=== PATIENT | female | born 2000 | race Two or more races ===

== ENCOUNTER → 2019-04-03 | Outpatient (CLI) | payer OTHER | END | disposition home or self-care (01) | LOC: PRENATAL 11:00 | DX: O35.3XX1 Maternal care for (suspected) damage to fetus from viral disease in mother, fetus 1 (principal); Z36.89 Encounter for other specified antenatal screening; O98.912 Unspecified maternal infectious and parasitic disease complicating pregnancy, second trimester; O99.212 Obesity complicating pregnancy, second trimester; Z3A.21 21 weeks gestation of pregnancy ==

== ENCOUNTER → 2019-06-05 | Outpatient (CLI) | payer OTHER | END | disposition home or self-care (01) | LOC: PRENATAL 10:00 | DX: O26.843 Uterine size-date discrepancy, third trimester (principal); O99.213 Obesity complicating pregnancy, third trimester; O98.913 Unspecified maternal infectious and parasitic disease complicating pregnancy, third trimester ==

== ENCOUNTER 2019-07-21 01:46 | Outpatient (CLI) | payer OTHER ==
[2019-07-21] MEDS ORDERED: PRENATAL TABLE1 EAC1 PO (02:05)
[2019-07-21] MEDS ORDERED: DIALYVITE 800-1 EACH PO (02:06)
[2019-07-21] MEDS ORDERED: ADULT LOW DOSE81 M1 PO (02:07)
== END 2019-07-21 15:02 | disposition home or self-care (01) ==
LOC: OBS/DEL 01:46
DX: O60.03 Preterm labor without delivery, third trimester (principal)

== ENCOUNTER 2019-08-11 06:24 | Inpatient (IN) | payer OTHER ==
[~2019-08-11] VITALS: Ht 165.1 cm; Wt 113.4 kg
[~2019-08-11 06:24] MED LIST: ADULT LOW DOSE81 M1 PO; DIALYVITE 800-1 EACH PO; PRENATAL TABLE1 EAC1 PO
== END 2019-08-13 12:35 | disposition home or self-care (01) | DRG 807 ==
LOC: LDR 06:24 → OB/GYN 18:37
PROVIDERS: ADMIT Obstetrics & Gynecology; ATTEND Obstetrics & Gynecology
PROC: 10E0XZZ Delivery of Products of Conception, External Approach (ICD-10-PCS; principal; 2019-08-11)
PROC: 0KQM0ZZ Repair Perineum Muscle, Open Approach (ICD-10-PCS; 2019-08-11)
PROC: 3E0P7VZ Introduction of Hormone into Female Reproductive, Via Natural or Artificial Opening (ICD-10-PCS; 2019-08-11)
PROC: 3E033VJ Introduction of Other Hormone into Peripheral Vein, Percutaneous Approach (ICD-10-PCS; 2019-08-11)
PROC: 10907ZC Drainage of Amniotic Fluid, Therapeutic from Products of Conception, Via Natural or Artificial Opening (ICD-10-PCS; 2019-08-11)
PROC: 4A1HXCZ Monitoring of Products of Conception, Cardiac Rate, External Approach (ICD-10-PCS; 2019-08-11)
DX: O70.1 Second degree perineal laceration during delivery (principal); Z37.0 Single live birth; Z3A.39 39 weeks gestation of pregnancy

== ENCOUNTER 2024-06-20 05:40 | Emergency (ER) | payer OTHER ==
[~2024-06-20] VITALS: Ht 165.1 cm; Wt 109.8 kg
[2024-06-20] MEDS ORDERED: RINGERS SOLUTION,LACTATED 1,000 ML IV STA (06:27)
[2024-06-20] MEDS ORDERED: MORPHINE SULFATE 4 MG/ML VIAL IV STA (06:30)
[2024-06-20 07:57] LABS: HEMATOCRIT 36.7 % (36.0-45.00); HEMOGLOBIN 12.2 g/dL (12.0-15.00); MEAN CELL VOLUME 89.1 fL (80.00-100.00); MEAN CORPUSCULAR HEMOGLOBIN 29.5 pg (27.00-32.0); MEAN CORPUSCULAR HGB CONC 33.1 g/dl (32.0-36.0); PLATELET COUNT 289 K/uL (150-450); RED BLOOD COUNT 4.12 M/uL (4.00-6.00); RED CELL DISTRIBUTION WIDTH 13.1 % (11.5-14.5)
[2024-06-20 08:05] LABS: INR 0.94; PARTIAL THROMBOPLASTIN TIME 27.5 SECONDS (22.0-34.0); PROTHROMBIN TIME 10.3 SECONDS (9.0-11.5)
[2024-06-20 08:21] LABS: ALBUMIN 3.4 gm/dL (3.4-5.0); BILIRUBIN TOTAL 0.39 mg/dL (0.3-1.2); CREATININE SERUM 0.61 mg/dL (0.55-1.02); GFR 118.56; GLOBULINA 3.5 G/DL (2.4-3.5); POTASSIUM 4.42 mEq/L (3.5-5.1); TOTAL PROTEIN 6.9 gm/dL (6.4-8.2)
== END 2024-06-20 13:57 | disposition home or self-care (01) ==
LOC: ER 05:41
DX: O20.8 Other hemorrhage in early pregnancy (principal); O41.8X90 Other specified disorders of amniotic fluid and membranes, unspecified trimester, not applicable or unspecified; Z3A.01 Less than 8 weeks gestation of pregnancy

== ENCOUNTER 2024-08-06 08:32 | Outpatient (CLI) | payer OTHER | END 2024-08-06 08:33 | disposition home or self-care (01) | LOC: PRENATAL 08:32 | PROVIDERS: ATTEND Obstetrics & Gynecology Maternal & Fetal Medicine | DX: O36.80X0 Pregnancy with inconclusive fetal viability, not applicable or unspecified (principal); Z36.82 Encounter for antenatal screening for nuchal translucency; Z14.8 Genetic carrier of other disease; Z3A.14 14 weeks gestation of pregnancy ==

== ENCOUNTER → 2024-09-21 09:39 | Outpatient (CLI) | payer OTHER | END | disposition home or self-care (01) | LOC: PRENATAL 09:39 | PROVIDERS: ATTEND Obstetrics & Gynecology | DX: O44.00 Complete placenta previa NOS or without hemorrhage, unspecified trimester (principal); Z3A.21 21 weeks gestation of pregnancy ==

== ENCOUNTER 2024-11-12 09:26 | Outpatient (CLI) | payer OTHER | END 2024-11-12 09:30 | disposition home or self-care (01) | LOC: PRENATAL 09:26 | PROVIDERS: ATTEND Obstetrics & Gynecology Maternal & Fetal Medicine | DX: O26.849 Uterine size-date discrepancy, unspecified trimester (principal); O36.8130 Decreased fetal movements, third trimester, not applicable or unspecified; Z3A.29 29 weeks gestation of pregnancy ==

== ENCOUNTER 2024-11-23 21:37 | Outpatient (CLI) | payer OTHER ==
[~2024-11-23] VITALS: Ht 167.6 cm; Wt 120.2 kg
[2024-11-23 20:59] VITALS: BP 102/63
[2024-11-23] MEDS ORDERED: FOLIC ACID0.4 MG PO (21:50)
[2024-11-23] MEDS ORDERED: PRENATA CHEWAB1 EACH PO (21:50)
[2024-11-23] MEDS ORDERED: CHILDREN'S ASPI81 MG (21:50)
[2024-11-23] MEDS ORDERED: RINGERS SOLUTION,LACTATED 1,000 ML IV SCH (22:00)
[2024-11-23 22:16] LABS: BASO % 0.5 % (0.1-1.2); EOS # 0.45 (0.04-0.54); EOS % 4.0 % (0.7-7.0); LYMPH # 2.13 (1.18-3.74); LYMPH % 19.0 % (19.3-53.1); MEAN PLATELET VOLUME 10.60 fl (9.4-12.4); MONO # 1.05 (0.24-0.82); MONO % 9.3 % (4.7-12.5); NEUT # 7.32 (1.56-6.13); NEUT % 65.2 % (34.0-71.1); RED CELL DISTRIBUTION WIDTH 13.5 % (11.6-14.4); URINE APPEARANCE Clear; URINE BILIRRUBIN Negative (NEGATIVE); URINE BLOOD Negative; URINE COLOR Yellow; URINE GLUCOSE Negative (NEGATIVE); URINE KETONE Negative (NEGATIVE); URINE LEUKOCYTE Trace; URINE NITRATE Negative; URINE PROTEIN Negative (NEGATIVE); URINE UROBILINOGEN 0.2 E.U./dl
[2024-11-23 22:17] LABS: URINE BACTERIA 3243.6 uL (0.0-1933); URINE EPITHELIAL CELLS 17.8 uL (0.0-38.8); URINE RBC 2.6 uL (0.0-20.8); URINE WBC 34.1 uL (0.0-23.2)
[2024-11-23 22:20] LABS: URINE CAST 0.14 uL (0.0-1.40)
[2024-11-23 23:12] VITALS: BP 103/65
[2024-11-24 03:00] VITALS: BP 103/65
[2024-11-24 06:21] VITALS: BP 94/64; O2SAT 98
[2024-11-24 11:33] VITALS: BP 94/64
== END 2024-11-24 11:33 | disposition home or self-care (01) ==
LOC: OBS/DEL 21:37
PROVIDERS: ATTEND Obstetrics & Gynecology
DX: O26.893 Other specified pregnancy related conditions, third trimester (principal); O36.8130 Decreased fetal movements, third trimester, not applicable or unspecified; O26.899 Other specified pregnancy related conditions, unspecified trimester; O32.9XX0 Maternal care for malpresentation of fetus, unspecified, not applicable or unspecified; Z3A.30 30 weeks gestation of pregnancy

== ENCOUNTER 2024-12-07 19:04 | Outpatient (CLI) | payer OTHER ==
[~2024-12-07] VITALS: Ht 167.6 cm; Wt 120.2 kg
[2024-12-07 18:28] VITALS: BP 98/60
[~2024-12-07 19:04] MED LIST changes: +CHILDREN'S ASPI81 MG; +FOLIC ACID0.4 MG PO; +PRENATA CHEWAB1 EACH PO
[2024-12-07] MEDS ORDERED: BETAMETHASONE ACETATE,SOD PHOS 30 MG/5 ML ML IM STA (19:17)
[2024-12-07 19:30] LABS: BASO % 0.4 % (0.1-1.2); EOS # 0.41 (0.04-0.54); EOS % 3.1 % (0.7-7.0); LYMPH # 2.37 (1.18-3.74); LYMPH % 17.6 % (19.3-53.1); MEAN PLATELET VOLUME 10.60 fl (9.4-12.4); MONO # 0.91 (0.24-0.82); MONO % 6.8 % (4.7-12.5); NEUT # 9.52 (1.56-6.13); NEUT % 70.8 % (34.0-71.1); RED CELL DISTRIBUTION WIDTH 13.1 % (11.6-14.4)
[2024-12-07] MEDS ORDERED: RINGERS SOLUTION,LACTATED 1,000 ML IV SCH (19:30)
[2024-12-07 19:36] LABS: URINE APPEARANCE Clear; URINE BILIRRUBIN Negative (NEGATIVE); URINE BLOOD Negative; URINE COLOR Yellow; URINE GLUCOSE Negative (NEGATIVE); URINE LEUKOCYTE Negative; URINE NITRATE Negative; URINE PROTEIN Negative (NEGATIVE); URINE UROBILINOGEN 0.2 E.U./dl
[2024-12-07 19:40] LABS: URINE BACTERIA 2931.2 uL (0.0-1933); URINE EPITHELIAL CELLS 14.7 uL (0.0-38.8); URINE RBC 2.6 uL (0.0-20.8); URINE WBC 49.2 uL (0.0-23.2)
[2024-12-07 19:52] LABS: URINE CAST 0.14 uL (0.0-1.40); URINE KETONE 40 (NEGATIVE)
[2024-12-07 19:55] LABS: INR 0.95
[2024-12-07 23:12] VITALS: BP 101/64
[2024-12-08 03:25] VITALS: BP 109/66; O2SAT 100
[2024-12-08 06:12] VITALS: BP 99/60; O2SAT 97
[2024-12-08 11:05] VITALS: BP 112/70; O2SAT 96
[2024-12-08 15:29] VITALS: BP 113/70
[2024-12-08] MEDS ORDERED: BETAMETHASONE ACETATE,SOD PHOS 30 MG/5 ML ML ONE (16:48)
[2024-12-08 18:45] VITALS: BP 113/70
[2024-12-08] MEDS ORDERED: BETAMETHASONE ACETATE,SOD PHOS 30 MG/5 ML ML IM NR (19:30)
== END 2024-12-08 18:45 | disposition home or self-care (01) ==
LOC: OBS/DEL 19:04
PROVIDERS: ATTEND Obstetrics & Gynecology
DX: O47.03 False labor before 37 completed weeks of gestation, third trimester (principal); O26.843 Uterine size-date discrepancy, third trimester; O36.8130 Decreased fetal movements, third trimester, not applicable or unspecified; Z3A.33 33 weeks gestation of pregnancy

== ENCOUNTER 2025-01-05 14:45 | Outpatient (CLI) | payer OTHER | END 2025-01-05 14:48 | disposition home or self-care (01) | LOC: PRENATAL 14:45 | PROVIDERS: ATTEND Obstetrics & Gynecology Maternal & Fetal Medicine | DX: O26.843 Uterine size-date discrepancy, third trimester (principal); O36.8130 Decreased fetal movements, third trimester, not applicable or unspecified; O36.63X0 Maternal care for excessive fetal growth, third trimester, not applicable or unspecified; Z3A.37 37 weeks gestation of pregnancy ==

== ENCOUNTER 2025-01-19 12:03 | Inpatient (IN) | payer OTHER ==
[~2025-01-19] VITALS: Ht 167.6 cm; Wt 124.7 kg
[2025-01-19 12:43] LABS: BASO % 0.4 % (0.1-1.2); EOS # 0.19 (0.04-0.54); EOS % 1.7 % (0.7-7.0); LYMPH # 1.99 (1.18-3.74); LYMPH % 17.6 % (19.3-53.1); MEAN PLATELET VOLUME 10.60 fl (9.4-12.4); MONO # 0.85 (0.24-0.82); MONO % 7.5 % (4.7-12.5); NEUT # 8.09 (1.56-6.13); NEUT % 71.6 % (34.0-71.1); RED CELL DISTRIBUTION WIDTH 13.5 % (11.6-14.4)
[2025-01-19 12:51] LABS: URINE APPEARANCE Cloudy; URINE BILIRRUBIN Negative (NEGATIVE); URINE BLOOD Negative; URINE COLOR Yellow; URINE GLUCOSE Negative (NEGATIVE); URINE KETONE Negative (NEGATIVE); URINE LEUKOCYTE Small; URINE NITRATE Negative; URINE PROTEIN Trace (NEGATIVE); URINE UROBILINOGEN 1.0 E.U./dl
[2025-01-19 12:52] LABS: URINE EPITHELIAL CELLS 37.3 uL (0.0-38.8); URINE RBC 5.2 uL (0.0-20.8); URINE WBC 58.0 uL (0.0-23.2)
[2025-01-19 13:12] LABS: URINE CAST 0.73 uL (0.0-1.40)
[2025-01-19 13:31] LABS: INR < 0.93
[2025-01-26 06:31] VITALS: BP 110/72
[2025-01-26] MEDS ORDERED: CEFAZOLIN SODIUM 1,000 MG VIAL ONE (14:54)
[2025-01-26] MEDS ORDERED: OXYTOCIN 10 UNITS/ML VIAL ONE (14:55)
[2025-01-26] MEDS ORDERED: ERYTHROMYCIN BASE OPHT 1GM EACH TUBE OP ONE (14:55)
[2025-01-26 19:29] LABS: BASO % 0.2 % (0.1-1.2); EOS # 0.19 (0.04-0.54); EOS % 1.4 % (0.7-7.0); LYMPH # 1.82 (1.18-3.74); LYMPH % 13.6 % (19.3-53.1); MEAN PLATELET VOLUME 10.80 fl (9.4-12.4); MONO # 0.57 (0.24-0.82); MONO % 4.3 % (4.7-12.5); NEUT # 10.62 (1.56-6.13); NEUT % 79.3 % (34.0-71.1); RED CELL DISTRIBUTION WIDTH 13.7 % (11.6-14.4)
[2025-01-26] MEDS ORDERED: MORPHINE SULFATE 4 MG/ML CARTRIDGE IV SCH (21:00)
[2025-01-27 01:17] VITALS: BP 128/80
[2025-01-27] MEDS ORDERED: KETOROLAC TROMETHAMINE 60 MG VIAL IM ONE (02:00)
[2025-01-27] MEDS ORDERED: OxyCODONE HCL 5 MG TABLET (ROXICODONE) PO SCH (05:00)
[2025-01-27 08:00] VITALS: BP 135/83
[2025-01-27] MEDS ORDERED: PNV,CALCIUM 72/IRON/FOLIC ACID 1 TAB TABLET PO SCH (08:00)
[2025-01-27] MEDS ORDERED: DOCUSATE SODIUM 100MG CAP PO SCH (08:00)
[2025-01-27] MEDS ORDERED: SIMETHICONE 125 MG CAPSULE PO SCH (08:00)
[2025-01-27 16:29] VITALS: BP 118/80
[2025-01-28] VITALS: BP 114/78
[2025-01-28 08:00] VITALS: BP 117/81
== END 2025-01-28 17:11 | disposition home or self-care (01) | DRG 785 ==
LOC: OB/GYN 01-26 07:00 → O/R 01-26 14:00 → OB/GYN 01-26 18:24
PROVIDERS: ADMIT Obstetrics & Gynecology; ATTEND Obstetrics & Gynecology
PROC: 0UB70ZZ Excision of Bilateral Fallopian Tubes, Open Approach (ICD-10-PCS; 2025-01-26)
PROC: 4A1HXCZ Monitoring of Products of Conception, Cardiac Rate, External Approach (ICD-10-PCS; 2025-01-26)
PROC: 10D00Z1 Extraction of Products of Conception, Low, Open Approach (ICD-10-PCS; principal; 2025-01-26 07:00)
DX: O82 Encounter for cesarean delivery without indication (principal); O36.63X0 Maternal care for excessive fetal growth, third trimester, not applicable or unspecified; Z3A.38 38 weeks gestation of pregnancy; Z37.0 Single live birth; Z30.2 Encounter for sterilization

== ENCOUNTER 2025-01-23 17:40 | Outpatient (CLI) | payer OTHER ==
[2025-01-23 16:50] VITALS: BP 115/55
[2025-01-23] MEDS ORDERED: RINGERS SOLUTION,LACTATED 1,000 ML IV SCH (18:00)
[2025-01-23 18:14] LABS: BASO % 0.3 % (0.1-1.2); EOS # 0.21 (0.04-0.54); EOS % 1.8 % (0.7-7.0); LYMPH # 1.99 (1.18-3.74); LYMPH % 16.9 % (19.3-53.1); MEAN PLATELET VOLUME 10.70 fl (9.4-12.4); MONO # 0.80 (0.24-0.82); MONO % 6.8 % (4.7-12.5); NEUT # 8.59 (1.56-6.13); NEUT % 72.7 % (34.0-71.1); RED CELL DISTRIBUTION WIDTH 13.6 % (11.6-14.4)
[2025-01-23 18:19] LABS: URINE APPEARANCE Cloudy; URINE BILIRRUBIN Negative (NEGATIVE); URINE BLOOD Negative; URINE COLOR Dark Yellow; URINE GLUCOSE Negative (NEGATIVE); URINE KETONE Trace (NEGATIVE); URINE LEUKOCYTE Small; URINE NITRATE Negative; URINE PROTEIN 30 (NEGATIVE); URINE UROBILINOGEN 1.0 E.U./dl
[2025-01-23 18:23] LABS: URINE CAST 2.35 uL (0.0-1.40); URINE EPITHELIAL CELLS 39.0 uL (0.0-38.8); URINE RBC 10.6 uL (0.0-20.8); URINE WBC 457.9 uL (0.0-23.2)
[2025-01-23 18:35] LABS: URINE BACTERIA > 9821.5 uL (0.0-1933)
[2025-01-23 18:36] LABS: TYPE CELLS SQUAMOUS
[2025-01-23 19:09] LABS: INR < 0.93
[2025-01-23 21:06] VITALS: BP 108/63
[2025-01-23] MEDS ORDERED: CEFAZOLIN SODIUM 1,000 MG VIAL IV SCH (22:26)
[2025-01-23] MEDS ORDERED: ACETAMINOPHEN 500 MG GEL..CAP PO PRN (22:30)
[2025-01-23 23:19] VITALS: BP 115/79
[2025-01-24 04:15] VITALS: BP 115/68
[2025-01-24] MEDS ORDERED: CEFAZOLIN SODIUM 1,000 MG VIAL IV SCH (06:00)
[2025-01-24 07:30] VITALS: BP 114/76
[2025-01-24 11:39] VITALS: BP 123/84
[2025-01-24 15:14] VITALS: BP 109/62
[2025-01-24 17:05] VITALS: BP 109/62
[2025-01-25] MEDS ORDERED: HEPARIN SODIUM,PORCINE/PF 100 UNIT/ML SYRINGE IV ONE (13:03)
[2025-01-25] MEDS ORDERED: LIDOCAINE HCL 1%/EPINEPHRINE 20ML VIAL IJ ONE (13:03)
[2025-01-25] MEDS ORDERED: BUPIVACAINE HCL/MPF 0.5% 30ML VIAL ONE (13:03)
== END 2025-01-24 17:05 | disposition home or self-care (01) ==
LOC: OBS/DEL 17:40
PROVIDERS: Obstetrics & Gynecology; ATTEND Obstetrics & Gynecology
DX: O26.893 Other specified pregnancy related conditions, third trimester (principal); R10.20 Pelvic and perineal pain unspecified side; Z3A.38 38 weeks gestation of pregnancy